=== PATIENT | female | born 1935 | race Caucasian/White ===

== ENCOUNTER → 2017-02-27 | Outpatient (REF) | payer MEDICARE ==
[~2017-02-27] MED LIST: ACET1TAB16 PO; ALEV220T26 PO; ATEN50TA2 PO; BACL10TA PO; CITA20TA4 PO; D 50CAP PO; HYDR25TAB PO; LETR2.5T2 PO; LIDO1OIN2 TOP; MULTCAP11 PO; QUIN10TA25 PO; QUIN20TA17 PO; SIMV20TA2 PO; ZYLO300T4 PO
[2017-02-27 16:22] LABS: MEAN CORPUSCULAR HEMOGLOBIN 31.8 pg (27.0-33.0); MEAN CORPUSCULAR HGB CONC 33.5 g/dl (32.0-36.5); MEAN CORPUSCULAR VOLUME 94.8 fl (80.0-96.0); RED CELL DISTRIBUTION WIDTH 13.4 % (11.5-14.5); WHITE BLOOD COUNT 4.7 10^3/uL (4.0-10.0)
[2017-02-27 18:24] LABS: ERYTHROCYTE SEDIMENTATION RATE 20 mm/hr (0-30)
[2017-02-28 00:42] LABS: EOSINOPHILS 3 % (0-5)
== END ==
LOC: M LABDRAW1 14:46
PROVIDERS: ATTEND Orthopaedic Surgery
DX: M25.552 Pain in left hip (principal)

== ENCOUNTER → 2017-03-05 | Outpatient (CLI) | payer MEDICARE ==
--- NOTE | 2017-03-05 12:30 | REP ---
Three-phase radionuclide bone scan of the hips: The skeletal phase of the study there is increased uptake in the left femoral neck. I suspect there is cephalad migration of the greater trochanter, however, this would require plain films for confirmation. There are no plain films in our film file. Additionally, there is a tiny focal zone of increased uptake in the proximal shaft of the left femur. On the vascular phase of the study there appears to be mildly increased soft tissue radiotracer uptake of the right five compared to the left. Impression: Increased uptake in the left femoral neck and questionable cephalad migration of the left greater trochanter. Recommend plain film correlation. Additionally, there is a small focus of increased uptake in the proximal left femoral shaft. On the vascular phase there appears to be increased soft tissue uptake in the right thigh. The study is performed with 22 mCi of technetium 99m labeled MDP. Signed by Heriberto Amanda MD 03/05/2017 12:21 P
== END ==
LOC: M RAD 08:00
PROVIDERS: ATTEND Orthopaedic Surgery
DX: M25.552 Pain in left hip (principal)
CPT/HCPCS: 78315; A9503

== ENCOUNTER 2017-12-19 06:59 | Day surgery (SDC) | payer MEDICARE ==
[2017-12-19] MEDS: TRIAMCINOLONE PRES FR 40 MG/ML 1ML(TRIESENCE)(OR EYE ONLY)(J3300 PER 1MG) As Ordered (06:45)
[~2017-12-19 06:59] MED LIST changes: -ACET1TAB16 PO; +ACETAMINOPHEN 325 MG TAB PO; -ALEV220T26 PO; -ATEN50TA2 PO; -BACL10TA PO; -CITA20TA4 PO; -D 50CAP PO; -HYDR25TAB PO; -LETR2.5T2 PO; -LIDO1OIN2 TOP; -MULTCAP11 PO; -QUIN10TA25 PO; -QUIN20TA17 PO; -SIMV20TA2 PO; -ZYLO300T4 PO
[2017-12-19] MEDS ORDERED: PHENYLEPHRINE HCL 10 % OPHTH. SOL 5ML OD (07:00)
[2017-12-19] MEDS: BSS with VANC/TOB/EPI for EYE CASES IR (07:00)
[2017-12-19] MEDS: OFLOXACIN 0.3 % (OCUFLOX) OPTH SOL 5ML OD (07:20)
[2017-12-19] MEDS: LIDOCAINE 3.5 % 1ML OPHTH TOPICAL GEL OU (07:20)
[2017-12-19] MEDS: PHENYLEPHRINE 2.5% OPHTH SOL 2ML OD (07:20)
[2017-12-19] MEDS: TROPICAMIDE 1% OPHTH SOLN 2ML OD (07:20)
[2017-12-19] MEDS: CYCLOPENTOLATE 2% OPHTH SOLN 2ML BTL OD (07:20)
[2017-12-19] MEDS ORDERED: MIDAZOLAM INJ 2 MG/2 ML VIAL (J2250) As Ordered (07:57)
[2017-12-19] MEDS ORDERED: fentaNYL 100 MCG/2 ML INJECTION (J3010) As Ordered (07:57)
[2017-12-19] MEDS: HEALON DUET (HEALON 10MG/ML 0.55ML & HEALON ENDOCOAT 30MG/ML 0.85ML) As Ordered (08:22)
[2017-12-19] MEDS: MOXIFLOXACIN IN BSS 0.25MG/0.25ML INTRACAMERAL INJ (OR EYE ONLY)(J2280) As Ordered (08:22)
[2017-12-19] MEDS: POVIDONE-IODINE 5% OPHTH PREP SOL 30ML As Ordered (08:22)
[2017-12-19] MEDS: LIDOCAINE 1% SDV 5 ML VIAL As Ordered (08:22)
[2017-12-19] MEDS: AcetaZOLAMIDE 500 MG ER CAP PO (08:57)
[2017-12-19] MEDS ORDERED: TRIMETHOBENZAMIDE 300 MG CAP PO (09:00)
== END 2017-12-19 09:13 | disposition home or self-care (01) ==
LOC: M SDC 06:59
DX: H25.9 Unspecified age-related cataract (principal); I10 Essential (primary) hypertension; E04.2 Nontoxic multinodular goiter; E78.5 Hyperlipidemia, unspecified; E11.9 Type 2 diabetes mellitus without complications; Z79.899 Other long term (current) drug therapy; Z88.0 Allergy status to penicillin
CPT/HCPCS: 66984